=== PATIENT | male | born 1945 | race Asian ===

== ENCOUNTER 2018-09-07 09:00 | Day surgery (SDC) | payer MEDICARE, OTHER, MEDICAID ==
[2018-09-07] MEDS ORDERED: PROPOFOL 40 ML (10:29)
[2018-09-07] MEDS ORDERED: LIDOCAINE 2% (SDV) 5 ML INJ (10:29)
[2018-09-07] MEDS ORDERED: EPHEDrine SULFATE 50 MG/5 ML SYG (10:29)
== END 2018-09-07 13:18 | disposition home or self-care (01) ==
LOC: GIL 09:00
DX: K92.1 Melena (principal); D12.5 Benign neoplasm of sigmoid colon; K64.8 Other hemorrhoids; I10 Essential (primary) hypertension; E11.9 Type 2 diabetes mellitus without complications; E78.5 Hyperlipidemia, unspecified; I25.2 Old myocardial infarction; I25.10 Atherosclerotic heart disease of native coronary artery without angina pectoris; Z79.02 Long term (current) use of antithrombotics/antiplatelets
CPT/HCPCS: 45380; 82962; 88305